=== PATIENT | male | born 1950 | race Caucasian/White ===

== ENCOUNTER → 2024-02-01 11:16 | Outpatient (BNVA) | payer MEDICARE, SELFPAY | PROVIDERS: Visit Provider Emergency Medicine | DX: M19.011 Primary osteoarthritis, right shoulder (principal) | CPT/HCPCS: 73030 ==

== ENCOUNTER → 2024-02-12 11:16 | Outpatient (BNVA) | payer MEDICARE, SELFPAY | DX: I10 Essential (primary) hypertension (principal) | CPT/HCPCS: 80053 ==

== ENCOUNTER 2024-02-18 14:09 | Outpatient (CLI) | payer MEDICARE, SELFPAY ==
--- NOTE | 2024-02-18 14:30 | MR_ITS ---
WS: [id number] MRI RIGHT SHOULDER NONCONTRAST TECHNIQUE: Sagittal T2, coronal T1, T2 and proton density imaging. Axial gradient PDE imaging. CLINICAL INFORMATION: right shoulder injury COMPARISON: None. FINDINGS: Advanced degenerative arthritis AC joint with fluid and edema. Subacromial spurring with loss of the subacromial space. Impingement on the distal supraspinatus. Chronic thinning and atrophy of the supra spinatus with high-grade tear distally. Tendon is retracted to the level of the acromion. Tendinopath y residual supraspinatus tendon. Infraspinatus appears intact. Teres minor appears intact. High-grade tear of the subscapularis tendon distally. Medial dislocation of the biceps tendon from the bicipita l groove. Moderate degenerative narrowing at the glenohumeral articulation. Small joint effusion. Subchondral c ystic change involving the greater tuberosity. Intra-articular biceps tendon appears intact. MR/MR shoulder RT wo con* [id number] IMPRESSION: 1. Advanced degenerative arthritis AC joint with loss of the subacromial spac e. 2. High-grade tear of the supraspinatus with retraction to the level of the ac romion. 3. High-grade tear with retraction of the subscapularis tendon to the myotendi nous junction. 4. Medial dislocation of the biceps tendon from the bicipital groove. 5. Intra-articular biceps tendon appears intact.
== END 2024-02-18 14:10 | disposition home or self-care (01) ==
LOC: RAD 14:11
DX: M75.121 Complete rotator cuff tear or rupture of right shoulder, not specified as traumatic (principal); M19.011 Primary osteoarthritis, right shoulder
CPT/HCPCS: 73221; 80053

== ENCOUNTER → 2024-11-30 11:19 | Outpatient (BNVA) | payer MEDICARE, SELFPAY | DX: Z12.5 Encounter for screening for malignant neoplasm of prostate (principal); R30.0 Dysuria; R39.9 Unspecified symptoms and signs involving the genitourinary system | CPT/HCPCS: 81000; 87086; G0103 ==